=== PATIENT | female | born 1980 | race Caucasian/White ===

== ENCOUNTER 2016-10-13 09:03 | Day surgery (SDC) | payer OTHER ==
[~2016-10-13] VITALS: Ht 172.7 cm; Wt 80.6 kg
[2016-10-13] MEDS ORDERED: LACTATED RINGERS 1,000 ML IV SCH (09:32)
[2016-10-13] MEDS ORDERED: SERT100T PO (09:38)
[2016-10-13] MEDS ORDERED: CARB200T PO (09:38)
[2016-10-13] MEDS ORDERED: ALPR0.5T PO (09:38)
[2016-10-13] MEDS ORDERED: ZOLP10TA PO (09:38)
[2016-10-13] MEDS ORDERED: LITH600C PO (09:38)
[2016-10-13] MEDS ORDERED: MORPHINE PO (09:38)
[2016-10-13] MEDS ORDERED: OXYC-306 PO (09:38)
[2016-10-13 09:42] VITALS: BP 109/73
[2016-10-13] MEDS ORDERED: LIDOCAINE 1%, 2ML ONE (09:47)
[2016-10-13 09:57] LABS: HCG UR OBC PASS
[2016-10-13] MEDS ORDERED: LIDOCAINE 1%, 2ML SQ PRN (10:00)
[2016-10-13] MEDS ORDERED: PROPOFOL 10 MG/ML, 20ML ONE (10:28)
[2016-10-13] MEDS ORDERED: FENTANYL PF 100 MCG/2ML ONE (10:28)
[2016-10-13] MEDS ORDERED: ONDANSETRON 2MG/ML, 2ML ONE (10:28)
[2016-10-13] MEDS ORDERED: SUCCINYLCHOLINE 20 MG/ML, 10ML ONE (10:28)
[2016-10-13] MEDS ORDERED: DEXAMETHASONE 4 MG/ML, 1ML ONE (10:28)
[2016-10-13] MEDS ORDERED: ROCURONIUM 10 MG/ML ONE (10:28)
[2016-10-13] MEDS ORDERED: CEFAZOLIN 1,000 MG ONE (10:28)
[2016-10-13] MEDS ORDERED: MIDAZOLAM 1 MG/ML, 2ML ONE (10:28)
[2016-10-13] MEDS ORDERED: EPHEDRINE 50 MG/ML, 1ML IVPush PRN (11:00)
[2016-10-13] MEDS ORDERED: ALBUTEROL SULFATE 2.5 MG/3 ML NPPB PRN (11:00)
[2016-10-13] MEDS ORDERED: HYDROcodone/APAP 7.5-325MG/15ML UDC PO PRN (11:00)
[2016-10-13] MEDS ORDERED: LABETALOL 5MG/ML, 20ML IV PRN (11:00)
[2016-10-13] MEDS ORDERED: hydrALAzine 20 MG/ML, 1ML IV PRN (11:00)
[2016-10-13] MEDS ORDERED: MEPERIDINE/PF 25MG/0.5ML IVPush PRN (11:00)
[2016-10-13] MEDS ORDERED: HYDROmorphone 1 MG/ML, 1ML IV PRN (11:00)
[2016-10-13] MEDS ORDERED: METOCLOPRAMIDE 5 MG/ML, 2ML IV PRN (11:00)
[2016-10-13] MEDS ORDERED: PROMETHAZINE 25 MG/ML, 1ML IV PRN (11:00)
[2016-10-13] MEDS ORDERED: KETOROLAC 30 MG/1 ML IV PRN (11:00)
[2016-10-13] MEDS ORDERED: ONDANSETRON 2MG/ML, 2ML IVPush PRN (11:00)
[2016-10-13] MEDS ORDERED: OXYcodone 5 MG/5 ML ORAL.SOL UDC PO PRN (11:00)
[2016-10-13] MEDS ORDERED: FENTANYL PF 100 MCG/2ML IV PRN (11:00)
[2016-10-13] MEDS ORDERED: METOPROLOL 1 MG/ML, 5ML IV PRN (11:00)
[2016-10-13] MEDS ORDERED: ACETAMINOPHEN 325 MG TABLET PO PRN (11:00)
[2016-10-13] MEDS ORDERED: OXYcodone 5 MG/5 ML ORAL.SOL UDC ONE (11:34)
[2016-10-13] MEDS ORDERED: ACETAMINOPHEN 650 MG/20.3 ML UDC ONE (11:34)
== END 2016-10-13 14:40 ==
LOC: OUT 09:03
PROVIDERS: ATTEND Colon & Rectal Surgery
DX: K40.90 Unilateral inguinal hernia, without obstruction or gangrene, not specified as recurrent (principal); F41.9 Anxiety disorder, unspecified; F32.9 Major depressive disorder, single episode, unspecified; G89.4 Chronic pain syndrome; Z98.890 Other specified postprocedural states; Z72.89 Other problems related to lifestyle; Z88.1 Allergy status to other antibiotic agents
CPT/HCPCS: 49505; 81025; 88302; C1781; J0330; J0690; J1100; J2250; J2405; J2704; J3010; J3490; J7120